=== PATIENT | female | born 1980 | race Caucasian/White ===

== ENCOUNTER 2017-03-04 16:38 | Emergency (ER) | payer MEDICAID ==
[~2017-03-04] VITALS: Ht 180.3 cm; Wt 95.7 kg
[~2017-03-04 16:38] MED LIST: ACE325 PO; AMIT-106 PO; ASP325 PO; ASPI-1064 PO; ASPI-715 PO; CYC10 PO; CYCL-332 PO; FLUT16SP20 NS; HYDR-4225 PO; IBUP600T22 PO; IRO150 PO; KET10 PO; LOR5 PO; LOR5/325 PO; LOR75 PO; LURA40TA4 PO; NAP250 PO; NAPR-1043 PO; NIT100 PO; OXYC-865 PO; PER PO; PRAZ1CAP26 PO; PREN-85 PO; SUMA50TA34 PO; TRA50 PO; TRAM-420 PO
[2017-03-04] MEDS ORDERED: NS(*) 0.9% 1000 ML BAG 1,000 ML IV ONE (17:00)
--- NOTE | 2017-03-04 17:06 | ER Report ---
History and Physical Time Seen By MD: 17:00 Hx. of Stated Complaint: PT FEELS LIKE SHE HAS AN ELECTRIC FEELING IN HEAD AND FACE. HPI/ROS CHIEF COMPLAINT: Electrical tingling sensation in scalp HISTORY OF PRESENT ILLNESS: 36-year-old female with history of panic disorder controlled by Vistaril has been out of this trauma unable to see her psychiatrist resents with 2 panic attacks in the last 24 hours one yesterday when today, recently developed tingling sensation in face and scalp. Feels like "electroshocks". Some numbness in extremities has resolved. Positive malaise. Denies sore throat. Has had a cough and been exposed to croup which her daughter had recently. No abdominal pain. No syncope or presyncope. No chest pain or shortness of breath. No fevers or chills. No other concerns or complaints today. REVIEW OF SYSTEMS: Constitutional: No fever, no chills. Eyes: No discharge. ENT: No sore throat. Cardiovascular: No chest pain, no palpitations. Respiratory: No cough, no shortness of breath. Gastrointestinal: No abdominal pain, no vomiting. Genitourinary: No hematuria. Musculoskeletal: No back pain. Skin: No rashes. Neurological: No headache. No weakness. No slurred speech. No word finding difficulties. Allergies: Coded Allergies: buspirone (Verified Allergy, Intermediate, MADE HER FEEL "ELECTRIC", ) morphine (Verified Adverse Reaction, Intermediate, NAUSEA/VOMITING, 03/04/17 ) Home Meds Active Scripts Hydroxyzine Pamoate (VISTARIL) 25 Mg Capsule, 25 MG PO QID for 30 Days, CAPSULE Prov:NOELLE GRANADOS MD 03/04/17 Ibuprofen (IBUPROFEN) 600 Mg Tablet, 1 TAB PO Q6H for 14 Days, #30 TAB Prov:NOELLE GRANADOS MD 03/04/17 Sumatriptan Succinate (IMITREX) 50 Mg Tablet, 1 TAB PO DAILY Y for mi, #9 TAB 0 Refills 1 tab daily as needed for migraine. If no effect after 2 hrs take 2nd tablet. Do not exceed 2 tabs in 24 hrs. Prov:RUKHSANA CHAVEZ APRN [employer] ASSEMBLER-[employer] 10/26/16 Hx Smoking: Yes (1ppd) Smoking Status: Current: Every Day Smoker Hx Substance Use Disorder: No Hx Alcohol Use: No Constitutional Physical Exam General Appearance: The patient is alert, has no immediate need for airway protection and no signs of toxicity. Overall well-appearing Eyes: Pupils equal and round no pallor or injection. ENT, Mouth: Mucous membranes are dry not moist. Respiratory: There are no retractions, lungs are clear to auscultation. Cardiovascular: Regular rate and rhythm. No murmurs gallops or rubs Gastrointestinal: Abdomen is soft and non tender, no masses, bowel sounds normal. Neurological: Cranial nerves II through XII intact normal strength and sensation 4 extremities no cerebellar deficits appreciated no gait disturbances no cognitive deficits Skin: Warm and dry, no rashes. Musculoskeletal: Neck is supple non tender. Extremities are nontender, nonswollen and have full range of motion. No edema DIFFERENTIAL DIAGNOSIS/MDM: After history and physical exam differential diagnosis was considered for panic attack panic disorder no signs of suicidal intentions or depression. 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 Cough and cold symptoms may be related to croup will obtain strep and flu screens. Fluid hydration for mild dehydration IV therapy screening labs for renal function as urine has been dark recently Medical Decision Making Data Points Laboratory Hematology Test 03/04/17 17:20 03/04/17 17:25 Red Blood Count 4.36 M/uL (4.17-5.56) Mean Corpuscular Volume 94.2 fL (80.0-96.0) Mean Corpuscular Hemoglobin 32.9 pg (26.0-33.0) Mean Corpuscular Hemoglobin Concent 34.9 g/dL (32.0-36.0) Red Cell Distribution Width 12.3 % (11.5-14.5) Mean Platelet Volume 9.6 fL (7.2-11.1) Neutrophils (%) (Auto) 54.2 % (39.4-72.5) Lymphocytes (%) (Auto) 27.0 % (17.6-49.6) Monocytes (%) (Auto) 16.7 % (4.1-12.4) Eosinophils (%) (Auto) 0.6 % (0.4-6.7) Basophils (%) (Auto) 1.5 % (0.3-1.4) Nucleated RBC Relative Count (auto) 0.0 /100WBC Neutrophils # (Auto) 2.4 K/uL (2.0-7.4) Lymphocytes # (Auto) 1.2 K/uL (1.3-3.6) Monocytes # (Auto) 0.7 K/uL (0.3-1.0) Eosinophils # (Auto) 0.0 K/uL (0.0-0.5) Basophils # (Auto) 0.1 K/uL (0.0-0.1) Nucleated RBC Absolute Count (auto) 0.00 K/uL Sodium Level 134 mmol/L (137-145) Potassium Level 3.8 mmol/L (3.5-5.0) Chloride Level 102 mmol/L (98-107) Carbon Dioxide Level 24 mmol/L (22-31) Blood Urea Nitrogen 10 mg/dl (7-18) Creatinine 0.70 mg/dl (0.52-1.04) Glomerular Filtration Rate Calc > 60.0 Random Glucose 83 mg/dl (75-110) Calcium Level 9.7 mg/dl (8.4-10.2) Troponin I < 0.012 ng/ml Human Chorionic Gonadotropin, Qual Negative (NEGATIVE) Influenza Type A Antigen Negative (NEGATIVE) Influenza Type B Antigen Positive (NEGATIVE) Group A Streptococcus Screen Negative (NEGATIVE) Chemistry Test 03/04/17 17:20 03/04/17 17:25 White Blood Count 4.4 k/uL (4.5-11.0) Red Blood Count 4.36 M/uL (4.17-5.56) Hemoglobin 14.4 g/dL (12.0-16.0) Hematocrit 41.1 % (34.0-47.0) Mean Corpuscular Volume 94.2 fL (80.0-96.0) Mean Corpuscular Hemoglobin 32.9 pg (26.0-33.0) Mean Corpuscular Hemoglobin Concent 34.9 g/dL (32.0-36.0) Red Cell Distribution Width 12.3 % (11.5-14.5) Platelet Count 169 K/uL (150-450) Mean Platelet Volume 9.6 fL (7.2-11.1) Neutrophils (%) (Auto) 54.2 % (39.4-72.5) Lymphocytes (%) (Auto) 27.0 % (17.6-49.6) Monocytes (%) (Auto) 16.7 % (4.1-12.4) Eosinophils (%) (Auto) 0.6 % (0.4-6.7) Basophils (%) (Auto) 1.5 % (0.3-1.4) Nucleated RBC Relative Count (auto) 0.0 /100WBC Neutrophils # (Auto) 2.4 K/uL (2.0-7.4) Lymphocytes # (Auto) 1.2 K/uL (1.3-3.6) Monocytes # (Auto) 0.7 K/uL (0.3-1.0) Eosinophils # (Auto) 0.0 K/uL (0.0-0.5) Basophils # (Auto) 0.1 K/uL (0.0-0.1) Nucleated RBC Absolute Count (auto) 0.00 K/uL Glomerular Filtration Rate Calc > 60.0 Calcium Level 9.7 mg/dl (8.4-10.2) Troponin I < 0.012 ng/ml Human Chorionic Gonadotropin, Qual Negative (NEGATIVE) Influenza Type A Antigen Negative (NEGATIVE) Influenza Type B Antigen Positive (NEGATIVE) Group A Streptococcus Screen Negative (NEGATIVE) Microbiology Microbiology Date/Time Source Procedure Growth Status 03/04/17 17:25 Throat Group A Streptococcus Screen ([facility]) - Final CONFIRMATORY CULTURE NEGATIVE FOR CARLY... Complete EKG/Imaging EKG Interpretation An EKG was performed at 1714 and interpreted by wa incomplete right bundle- branch block otherwise normal sinus rhythm rate of 84-year-old VT and QTc intervals normal QRS at 110. No ST or T-wave changes to suggest ischemia or infarction otherwise normal EKG Imaging Radiologist report was interpreted and results were discussed with the patient ED Course/Re-evaluation ED Course Care assigned to Dr. Granados at change of shift. See her note for details. Decision to Disposition Date: Mar 04, 2017 Decision to Disposition Time: 16:00 Turned Over The care of the patient was turned ove to Alex. Cesarger I authorize my typed signature that I authenticated this report. Depart Departure Latest Vital Signs Impression: Primary Impression: Flu syndrome Additional Impression: Anxiety Condition: Improved Referrals: JAYASHREE BERRY MD (PCP) New Scripts Hydroxyzine Pamoate (VISTARIL) 25 Mg Capsule 25 MG PO QID for 30 Days, CAPSULE Prov: NOELLE GRANADOS MD 03/04/17 Ibuprofen (IBUPROFEN) 600 Mg Tablet 1 TAB PO Q6H for 14 Days, #30 TAB Prov: NOELLE GRANADOS MD 03/04/17 Problem Qualifiers RICHARD PARKINSON MD Mar 04, 2017 17:06
--- NOTE | 2017-03-04 17:20 | EKG ---
FACILITY: [facility] - [place] PATIENT NAME: TYRESE TORREZ : [id number] MR: [id number] V: [id number] EXAM DATE: ORDERING PHYSICIAN: RICHARD PARKINSON TECHNOLOGIST: Bubba Wright Reason : Blood Pressure : / mmHG Vent. Rate : 084 BPM Atrial Rate : 084 BPM P-R Int : 178 ms QRS Dur : 110 ms QT Int : 368 ms P-R-T Axes : 041 007 039 degrees QTc Int : 434 ms Normal sinus rhythm T inversion septally consistent with ischemia vs normal variant No previous ECGs available Confirmed by CANDIE SHELTON ([id number]) on 03/04/2017 8:03:52 PM Referred By: Confirmed By:CANDIE SHELTON
--- NOTE | 2017-03-04 17:20 | RADIOLOGY IMAGING REPORT ---
FACILITY: [facility] - [place] PATIENT NAME: Emma Cee : 1980 MR: [id number] V: [id number] EXAM DATE: ORDERING PHYSICIAN: RICHARD PARKINSON TECHNOLOGIST: [place] [facility] [place]ee : 1980 Visit/Account:[id number] Date of Sevice: 03/04/2017 CHEST SINGLE AP Indication: Wheezing and dyspnea.. Comparison: None available Findings: Cardiomediastinal silhouette and pulmonary vessels within normal limits. There is no focal infiltrate or lobar consolidation. No pneumothorax or pleural effusion. No nodule. Upper abdomen is unremarkable. No acute bony abnormality. IMPRESSION: 1. No acute cardiopulmonary process. Report Dictated By: Mack Caceres at 03/04/2017 5:15 PM Report E-Signed By: Mack Caceres at 03/04/2017 5:16 PM WSN:[id number]
[2017-03-04 17:37] LABS: PLATELET COUNT, AUTOMATED 169 K/uL (150-450)
[2017-03-04] MEDS ORDERED: KETOROLAC 30 MG/ML VIAL IVP ONE (19:10)
[2017-03-04] MEDS ORDERED: IBUP600T22 PO (19:30)
[2017-03-04] MEDS ORDERED: HYDR25CA83 PO (19:30)
--- NOTE | 2017-03-04 19:40 | ER Report ---
History and Physical Time Seen By MD: 17:45 Hx. of Stated Complaint: PT FEELS LIKE SHE HAS AN ELECTRIC FEELING IN HEAD AND FACE. 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 If no effect after 2 hrs take 2nd tablet. Do not exceed 2 tabs in 24 hrs. Prov:RUKHSANA CHAVEZ APRN 10/26/16 Discontinued Scripts Tramadol Hcl (TRAMADOL HCL) 50 Mg Tablet, 1 TAB PO Q6H, #30 TAB 0 Refills Prov:RUKHSANA CHAVEZ APRN 01/07/17 Ibuprofen (IBUPROFEN) 600 Mg Tablet, 1 TAB PO BID Y for PAIN, #60 TAB 0 Refills Prov:RUKHSANA CHAVEZ APRN-Tash 10/26/16 Hydroxyzine Hcl (HYDROXYZINE HCL) 25 Mg Tablet, 1 TAB PO BID, #60 TAB 0 Refills Prov:RUKHSANA CHAVEZ APRN-Tash 10/26/16 Amitriptyline Hcl (AMITRIPTYLINE HCL) 25 Mg Tablet, 1 TAB PO QHS, #30 TAB 0 Refills Prov:RUKHSANA CHAVEZ APRN-Tash 10/26/16 Reviewed Nurses Notes: Yes Old Medical Records Reviewed: Yes Hx Smoking: Yes (1ppd) Smoking Status: Current: Every Day Smoker Hx Substance Use Disorder: No Hx Alcohol Use: No Constitutional Vital Signs Date Time Temp Pulse Resp B/P (MAP) Pulse Ox O2 Delivery O2 Flow Rate FiO2 03/04/17 16:45 99.7 90 16 129/85 95 Room Air Physical Exam General Appearance: The patient is alert, has no immediate need for airway protection and no current signs of toxicity. Eyes: Pupils equal and round no injection. Respiratory: Chest is non tender, lungs are clear to auscultation. Cardiac: regular rate and rhythm Gastrointestinal: Abdomen is soft and non tender, no masses, bowel sounds normal. Musculoskeletal: Neck: Neck is supple and non tender. Extremities have full range of motion and are non tender. Skin: No rashes or lesions. DIFFERENTIAL DIAGNOSIS: After history and physical exam differential diagnosis was considered for adult fever including but not limited to viral syndromes including influenza, urinary tract infection, pneumonia and sepsis. Medical Decision Making Data Points Result Diagram: 03/04/17 1720 03/04/17 1720 Laboratory Hematology Test 03/04/17 17:20 03/04/17 17:25 Red Blood Count 4.36 M/uL (4.17-5.56) Mean Corpuscular Volume 94.2 fL (80.0-96.0) Mean Corpuscular Hemoglobin 32.9 pg (26.0-33.0) Mean Corpuscular Hemoglobin Concent 34.9 g/dL (32.0-36.0) Red Cell Distribution Width 12.3 % (11.5-14.5) Mean Platelet Volume 9.6 fL (7.2-11.1) Neutrophils (%) (Auto) 54.2 % (39.4-72.5) Lymphocytes (%) (Auto) 27.0 % (17.6-49.6) Monocytes (%) (Auto) 16.7 % (4.1-12.4) Eosinophils (%) (Auto) 0.6 % (0.4-6.7) Basophils (%) (Auto) 1.5 % (0.3-1.4) Nucleated RBC Relative Count (auto) 0.0 /100WBC Neutrophils # (Auto) 2.4 K/uL (2.0-7.4) Lymphocytes # (Auto) 1.2 K/uL (1.3-3.6) Monocytes # (Auto) 0.7 K/uL (0.3-1.0) Eosinophils # (Auto) 0.0 K/uL (0.0-0.5) Basophils # (Auto) 0.1 K/uL (0.0-0.1) Nucleated RBC Absolute Count (auto) 0.00 K/uL Sodium Level 134 mmol/L (137-145) Potassium Level 3.8 mmol/L (3.5-5.0) Chloride Level 102 mmol/L (98-107) Carbon Dioxide Level 24 mmol/L (22-31) Blood Urea Nitrogen 10 mg/dl (7-18) Creatinine 0.70 mg/dl (0.52-1.04) Glomerular Filtration Rate Calc > 60.0 Random Glucose 83 mg/dl (75-110) Calcium Level 9.7 mg/dl (8.4-10.2) Troponin I < 0.012 ng/ml Human Chorionic Gonadotropin, Qual Negative (NEGATIVE) Influenza Type A Antigen Negative (NEGATIVE) Influenza Type B Antigen Positive (NEGATIVE) Group A Streptococcus Screen Negative (NEGATIVE) Chemistry Test 03/04/17 17:20 03/04/17 17:25 White Blood Count 4.4 k/uL (4.5-11.0) Red Blood Count 4.36 M/uL (4.17-5.56) Hemoglobin 14.4 g/dL (12.0-16.0) Hematocrit 41.1 % (34.0-47.0) Mean Corpuscular Volume 94.2 fL (80.0-96.0) Mean Corpuscular Hemoglobin 32.9 pg (26.0-33.0) Mean Corpuscular Hemoglobin Concent 34.9 g/dL (32.0-36.0) Red Cell Distribution Width 12.3 % (11.5-14.5) Platelet Count 169 K/uL (150-450) Mean Platelet Volume 9.6 fL (7.2-11.1) Neutrophils (%) (Auto) 54.2 % (39.4-72.5) Lymphocytes (%) (Auto) 27.0 % (17.6-49.6) Monocytes (%) (Auto) 16.7 % (4.1-12.4) Eosinophils (%) (Auto) 0.6 % (0.4-6.7) Basophils (%) (Auto) 1.5 % (0.3-1.4) Nucleated RBC Relative Count (auto) 0.0 /100WBC Neutrophils # (Auto) 2.4 K/uL (2.0-7.4) Lymphocytes # (Auto) 1.2 K/uL (1.3-3.6) Monocytes # (Auto) 0.7 K/uL (0.3-1.0) Eosinophils # (Auto) 0.0 K/uL (0.0-0.5) Basophils # (Auto) 0.1 K/uL (0.0-0.1) Nucleated RBC Absolute Count (auto) 0.00 K/uL Glomerular Filtration Rate Calc > 60.0 Calcium Level 9.7 mg/dl (8.4-10.2) Troponin I < 0.012 ng/ml Human Chorionic Gonadotropin, Qual Negative (NEGATIVE) Influenza Type A Antigen Negative (NEGATIVE) Influenza Type B Antigen Positive (NEGATIVE) Group A Streptococcus Screen Negative (NEGATIVE) ED Course/Re-evaluation ED Course Patient presented to the ED with flu-like symptoms and stressors at work. No meningismus. Afebrile. Flu B positive, but not a candidate for Tamiflu. Will give Ibuprofen and a note off work. GIven IV fluids and Toradol in the ED, and feel improved. Decision to Disposition Date: Mar 04, 2017 Decision to Disposition Time: 19:16 Depart Departure Latest Vital Signs Vital Signs Date Time Temp Pulse Resp B/P (MAP) Pulse Ox O2 Delivery O2 Flow Rate FiO2 03/04/17 16:45 99.7 90 16 129/85 95 Room Air Impression: Primary Impression: FLU DUE TO OTH IDENT INFLUENZA VIRUS W OTH RESP MANIFEST Condition: Improved Disposition: HOME OR SELF-CARE Referrals: JAYASHREE BERRY MD (PCP) New Scripts Hydroxyzine Pamoate (VISTARIL) 25 Mg Capsule 25 MG PO QID for 30 Days, CAPSULE Prov: NOELLE GRANADOS MD 03/04/17 Ibuprofen (IBUPROFEN) 600 Mg Tablet 1 TAB PO Q6H for 14 Days, #30 TAB Prov: NOELLE GRANADOS MD 03/04/17 Patient Instructions: Influenza (ED) NOELLE GRANADOS MD Mar 04, 2017 19:40
[2017-03-04 19:44] VITALS: BP 138/82
== END 2017-03-04 19:47 | disposition home or self-care (01) ==
LOC: ER 16:47
DX: J11.1 Influenza due to unidentified influenza virus with other respiratory manifestations (principal); F41.9 Anxiety disorder, unspecified
CPT/HCPCS: 71045; 84484; 84703; 85025; 87081; 87502; 87880; 93005; 96361; 96374; 99284; J1885; J7030; 82310; 82374; 82435; 82565; 82947; 84132; 84295; 84520

== ENCOUNTER 2017-05-11 15:24 | Emergency (ER) | payer MEDICAID ==
[~2017-05-11 15:24] MED LIST changes: +HYDR25CA83 PO
--- NOTE | 2017-05-11 15:37 | ER Report ---
History and Physical Time Seen By MD: 15:37 Hx. of Stated Complaint: patient has numbness and tingling in her right hand since wednesday; states that she has some mild numbness and tingling in her left hand HPI/ROS CHIEF COMPLAINT: Right arm numbness HISTORY OF PRESENT ILLNESS: 36-year-old female patient presents to emergency room with complaint of right arm numbness. Patient states that this been going on for last couple days. She states that it affects the entire hand. She states she is a hard time she is gripping things, not able to sense when she has them in her fingers. She denies any injury to the hand. She states that she has not taken any medication for this. She denies any fevers, chills, nausea, vomiting or diarrhea. REVIEW OF SYSTEMS: Respiratory: No cough, no dyspnea. Cardiovascular: No chest pain, no palpitations. Gastrointestinal: No vomiting, no abdominal pain. Musculoskeletal: As noted above Allergies: Coded Allergies: buspirone (Verified Allergy, Intermediate, MADE HER FEEL "ELECTRIC", ) morphine (Verified Adverse Reaction, Intermediate, NAUSEA/VOMITING, ) Home Meds Active Scripts Ketorolac Tromethamine (KETOROLAC TROMETHAMINE) 10 Mg Tab, 10 MG PO Q6H, #20 TAB Prov:PARKER OLGUIN 05/11/17 Hydroxyzine Pamoate (VISTARIL) 25 Mg Capsule, 25 MG PO QID for 30 Days, CAPSULE Prov:NOELLE GRANADOS MD 03/04/17 Ibuprofen (IBUPROFEN) 600 Mg Tablet, 1 TAB PO Q6H for 14 Days, #30 TAB Prov:NOELLE GRANADOS MD 03/04/17 Discontinued Scripts Sumatriptan Succinate (IMITREX) 50 Mg Tablet, 1 TAB PO DAILY Y for mi, #9 TAB 0 Refills 1 tab daily as needed for migraine. If no effect after 2 hrs take 2nd tablet. Do not exceed 2 tabs in 24 hrs. Prov:RUKHSANA CHAVEZ APRN DAIRY HUSBANDRY WORKER-C 10/26/16 Past Medical/Surgical History Patient has a past medical history of migraines, NT HFR, anxiety attack, panic attacks, bipolar, cervical cancer. Patient denies any surgical history. Hx Smoking: Yes (1ppd) Smoking Status: Current: Every Day Smoker Hx Substance Use Disorder: No Hx Alcohol Use: No Constitutional Vital Sign - Last 24 Hours 05/11/17 05/11/17 15:27 16:30 Temp 97.7 Pulse 105 100 Resp 18 19 B/P (MAP) 135/80 150/62 (91) Pulse Ox 95 96 O2 Delivery Room Air Room Air Physical Exam General Appearance: The patient is alert, has no immediate need for airway protection and no current signs of toxicity. ENT: Tympanic membranes are pearly-lerner, auditory canals are patent, mucous membranes are moist. Respiratory: Chest is non tender, lungs are clear to auscultation. Cardiac: regular rate and rhythm Gastrointestinal: Abdomen is soft and non tender, no masses, bowel sounds normal. Musculoskeletal: Neck: Neck is supple and non tender. Extremities have full range of motion and are non tender. Patient has no weakness with flexion extension of hands, fingers. Patient states she has no sensation noted in the ulnar or median nerves. Patient was able to make okay sign, abduct and adduct fingers without any difficulties. Skin: No rashes or lesions. DIFFERENTIAL DIAGNOSIS: After history and physical exam differential diagnosis was considered for elbow contusion, inflammation of ulnar median nerve. Medical Decision Making EKG/Imaging Imaging Examination: ELBOW 3 VIEWS RIGHT Comparison: None. History: hand numbness, tenderness to the elbow Findings: No fracture. Alignment and joint spaces are within normal limits. No joint effusion. Soft tissues are unremarkable. IMPRESSION: Negative right elbow. Report Dictated By: Thanh Hickman MD at 05/11/2017 4:06 PM Report E-Signed By: Thanh Hickman MD at 05/11/2017 4:07 PM ED Course/Re-evaluation ED Course Patient was admitted to examine, history and physical were obtained. Differential diagnoses were considered. On examination patient had decreased sensation to the median and ulnar nerve, patient had good strength with movement of the fingers, she is able to make an okay sign. And x-rays done of the right elbow which was negative. I believe this is likely caused from leaning on it. I discussed the patient's patient said that when she is a work she does lean on her right elbow quite a bit. We will go ahead and place her in a sling, will also wrap her elbow with an Harpal wrap and 4 x 4's for adequate cushioning. She is to leave that on for the next several days. Patient verbalized understanding and agreement. Decision to Disposition Date: May 11, 2017 Decision to Disposition Time: 16:25 Depart Departure Latest Vital Signs Vital Signs Date Time Temp Pulse Resp B/P (MAP) Pulse Ox O2 Delivery O2 Flow Rate FiO2 05/11/17 16:30 100 19 150/62 (91) 96 Room Air 05/11/17 15:27 97.7 Impression: Primary Impression: Peripheral nerve contusion Condition: Improved Disposition: HOME OR SELF-CARE Referrals: JAYASHREE BERRY MD (PCP) New Scripts Ketorolac Tromethamine (KETOROLAC TROMETHAMINE) 10 Mg Tab 10 MG PO Q6H, #20 TAB Prov: PARKER OLGUIN 05/11/17 Patient Instructions: Contusion in Adults (ED) Additional Instructions: Limit activity by pain. Ice the elbow 2-3 times a day for 10-15 minutes. Take the Toradol for the next 5 days, but do not take your Ibuprofen. Follow up with your primary care provider in the next week. Return to the ER if condition worsens. PARKER OLGUIN May 11, 2017 15:37
--- NOTE | 2017-05-11 16:11 | RADIOLOGY IMAGING REPORT ---
FACILITY: [facility] PATIENT NAME: Emma Cee : 1980 MR: [id number] V: [id number] EXAM DATE: ORDERING PHYSICIAN: PARKER OLGUIN TECHNOLOGIST: Location: [facility] - [place] Patient: Emma Cee : 1980 Visit/Account:[id number] Date of Sevice: 05/11/2017 Examination: ELBOW 3 VIEWS RIGHT Comparison: None. History: hand numbness, tenderness to the elbow Findings: No fracture. Alignment and joint spaces are within normal limits. No joint effusion. Soft t issues are unremarkable. IMPRESSION: Negative right elbow. Report Dictated By: Thanh Hickman MD at 05/11/2017 4:06 PM Report E-Signed By: Thanh Hickman MD at 05/11/2017 4:07 PM WSN:[id number]
[2017-05-11] MEDS ORDERED: KET10 PO (16:23)
[2017-05-11 16:30] VITALS: BP 150/62
== END 2017-05-11 16:28 | disposition home or self-care (01) ==
LOC: ER 15:28
DX: S44.11XA Injury of median nerve at upper arm level, right arm, initial encounter (principal); S44.01XA Injury of ulnar nerve at upper arm level, right arm, initial encounter
CPT/HCPCS: 73080; 99282; A4565

== ENCOUNTER → 2017-09-27 | Outpatient (CLI) | payer MEDICAID ==
[2017-09-27] MEDS: NS(*) 0.9% 1000 ML BAG 1,000 ML IV PRN ×2 (14:00→15:28)
[2017-09-27 14:35] VITALS: BP 105/76
[2017-09-27 15:25] VITALS: BP 108/72
== END ==
LOC: SPU 13:27
PROVIDERS: ATTEND Nurse Practitioner Family
DX: R11.2 Nausea with vomiting, unspecified (principal); K59.00 Constipation, unspecified
CPT/HCPCS: 96360; J7030

== ENCOUNTER 2018-03-06 14:10 | Emergency (ER) | payer SELFPAY ==
[2018-03-06] MEDS ORDERED: ASPI-1471 PO (14:22)
[2018-03-06] MEDS ORDERED: HYDR-4225 PO (14:22)
[2018-03-06 14:41] LABS: PLATELET COUNT, AUTOMATED 220 K/uL (150-450)
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
[2018-03-06] MEDS ORDERED: NS(*) 0.9% 1000 ML BAG 1,000 ML IV ONE (14:45)
[2018-03-06 14:46] LABS: INR 0.97
[2018-03-06] MEDS ORDERED: IOPAMIDOL 76% 75 ML INFUS BTL 75 ML ONE (14:53)
[2018-03-06] MEDS ORDERED: NS(*) 0.9% 50 ML BAG 50 ML ONE (14:55)
--- NOTE | 2018-03-06 15:25 | EKG ---
FACILITY: [facility] PATIENT NAME: TYRESE TORREZ : [id number] MR: [id number] V: [id number] EXAM DATE: ORDERING PHYSICIAN: SANDRA GRANADOS TECHNOLOGIST: LEONOR Test Reason : BURNING IN NECK Blood Pressure : / mmHG Vent. Rate : 077 BPM Atrial Rate : 077 BPM P-R Int : 168 ms QRS Dur : 102 ms QT Int : 382 ms P-R-T Axes : 067 049 059 degrees QTc Int : 432 ms Normal sinus rhythm No ST-T abnormalities When compared with ECG of 04-MAR-2017 17:14, No significant change was found Confirmed by CANDIE SHELTON ([id number]) on 03/06/2018 3:27:03 PM Referred By: ROBERTA Confirmed By:CANDIE SHELTON
--- NOTE | 2018-03-06 15:55 | RADIOLOGY IMAGING REPORT ---
FACILITY: [facility] PATIENT NAME: Emma Cee : 1980 MR: [id number] V: [id number] EXAM DATE: ORDERING PHYSICIAN: SANDRA GRANADOS TECHNOLOGIST: Location: [facility] - [place] Patient: Emma Cee : 1980 Visit/Account:[id number] Date of Sevice: 03/06/2018 CHEST SINGLE AP Indication: Dyspnea.. Comparison: 03/04/2017. Findings: Cardiomediastinal silhouette and pulmonary vessels within normal limits. There is no focal infiltrate or lobar consolidation. No pneumothorax or pleural effusion. No nodule. Upper abdomen is unremarkable. Contrast seen in the renal collecting systems. No acute bony abnormality. IMPRESSION: 1. No acute cardiopulmonary process. Report Dictated By: Mack Caceres at 03/06/2018 3:50 PM Report E-Signed By: Mack Caceres at 03/06/2018 3:51 PM WSN:[id number]
[2018-03-06 16:00] VITALS: BP 121/85
--- NOTE | 2018-03-06 16:00 | RADIOLOGY IMAGING REPORT ---
[place] [facility] [place]IENT NAME: Emma Cee : 1980 MR: [id number] V: [id number] EXAM DATE: ORDERING PHYSICIAN: SANDRA GRANADOS TECHNOLOGIST: Location: [facility] Patient: Emma Cee : 1980 Visit/Account:[id number] Date of Sevice: 03/06/2018 EXAMINATION: CT Head Without Contrast CTA of the Neck with IV contrast CTA of the Brain with IV contrast 03/06/2018 2:30 PM HISTORY: syncope when turning head, recent blunt trauma to head TECHNIQUE: Unenhanced imaging of the brain was done. Overlapping thin sections were obtained during a bolus of IV contrast from the aortic arch through the upper cerebrum. The technologist actually co marbin fairly low and the majority of the chest is included in the study. Reconstruction of the source data set includes multiplanar 2D in the sagittal and coronal planes, and 3D coronal thin slab MIP se ricky. Paper Baling Machine Operator images have been stored on PACS. Stenosis calculations are performed using the NASCET criteria Contrast: 75 mL of IV Isovue 370. One of the following dose optimization techniques was utilized in the performance of this exam: Autom ated exposure control; adjustment of the mA and/or kV according to the patient's size; or use of an i terative reconstruction technique. Specific details can be referenced in the facility's radiology C T exam operational policy. COMPARISON STUDIES: none. FINDINGS: CT Head: Ventricles / sulci / fissures: negative Masses / hemorrhage / midline shift: negative White matter: negative Arroyo-white differentiation: negative Extra-axial spaces: negative Dural venous sinuses: negative Skull base / calvarium: negative Visualized mastoid air cells / paranasal sinuses: Minimal mucosal thickening or a small retention cys t along the right side of the main sphenoid septum. Angiographic findings: Aortic arch and great vessels: Negative Right CCA / ICA: Negative Left CCA / ICA: Negative Vertebro-basilar: Negative [place]: Negative ABNER circulation: Negative MCA circulation: Negative HYDROGEN TREATER circulation: Negative Other: Mild scoliotic spinal curvature. IMPRESSION: 1. Unremarkable unenhanced head CT. No evidence of acute mass, stroke, or hemorrhage. 2. Unremarkable CTA evaluation of the head and neck. Report Dictated By: Jake Hines MD at 03/06/2018 3:34 PM Report E-Signed By: Jake Hines MD at 03/06/2018 3:57 PM WSN:[id number]
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
== END 2018-03-06 16:38 | disposition home or self-care (01) ==
LOC: ER 14:24
DX: S09.90XA Unspecified injury of head, initial encounter (principal); M62.838 Other muscle spasm
CPT/HCPCS: 20552; 70450; 70496; 70498; 71045; 81001; 84484; 84703; 85025; 85610; 85730; 93005; 99284; J7030; J7050; Q9967; 82040; 82247; 82310; 82374; 82435; 82565; 82947; 84075; 84132; 84155; 84295; 84450; 84460; 84520